=== PATIENT | male | born 1960 | race Caucasian/White ===

== ENCOUNTER → 2017-02-01 | Outpatient (CLI) | payer OTHER | LOC: FIMAGING 07:55 | PROVIDERS: ATTEND Psychiatry & Neurology Neurology | DX: M89.9 Disorder of bone, unspecified (principal); F07.89 Other personality and behavioral disorders due to known physiological condition; F09 Unspecified mental disorder due to known physiological condition; S06.0X9D Concussion with loss of consciousness of unspecified duration, subsequent encounter ==

== ENCOUNTER → 2017-03-04 | Outpatient (CLI) | payer OTHER ==
[~2017-03-04] MED LIST: GADOBUTROL 10 ML VIAL IVP ONE
== END ==
LOC: FIMAGING 10:30
PROVIDERS: ATTEND Psychiatry & Neurology Neurology
DX: M89.8X0 Other specified disorders of bone, multiple sites (principal); G93.89 Other specified disorders of brain
CPT/HCPCS: A9585

== ENCOUNTER → 2017-06-17 | Outpatient (CLI) | payer OTHER | LOC: FIMAGING 09:49 | PROVIDERS: ATTEND Neurological Surgery | DX: G93.89 Other specified disorders of brain (principal); M89.8X8 Other specified disorders of bone, other site | CPT/HCPCS: A9585 ==